=== PATIENT | male | born 2000 | race Caucasian/White ===

== ENCOUNTER 2020-05-19 16:11 | Outpatient (CLI) | payer OTHER, SELFPAY ==
--- NOTE | ~2020-05-19 | XR_ITS ---
EXAMINATION: XR chest 2V DATE: 05/19/2020 16:41 INDICATION: Acute upper respiratory infection. COVID-19 pneumonia. TECHNIQUE: Frontal and lateral views of the chest were obtained. COMPARISON: None. FINDINGS: There are patchy airspace opacities in all right lung zones and in left mid and lower lung zones. No pleural effusion or pneumothorax. The heart size is normal. IMPRESSION: 1. Diffuse lung disease, consistent with pneumonia. Reviewed, dictated and finalized at location A.
== END 2020-05-19 16:12 | disposition home or self-care (01) ==
PROVIDERS: PCP Pediatrics; Visit Provider Nurse Practitioner Family
DX: J06.9 Acute upper respiratory infection, unspecified (principal); R91.8 Other nonspecific abnormal finding of lung field
CPT/HCPCS: 71046

== ENCOUNTER 2021-12-31 09:43 | Emergency (ER) | payer OTHER, SELFPAY ==
--- NOTE | 2021-12-31 09:49 | ED.EAR ---
HPI - Ear Problem General Chief complaint: Upper Respiratory Infection Stated complaint: ear pain Time Seen by Provider: 12/31/21 09:45 Source: patient Mode of arrival: ambulatory Limitations: no limitations History of Present Illness HPI Narrative: Mr Dhaliwal is a 21-year-old male patient presenting to clinic today with complaints of sore throat x1 day. He reports that his symptoms began yesterday afternoon. He noted that his tonsils were swollen and thinks he may have strep. He denies any fever or chills. He denies any strep exposure Related Data Allergies Allergy/AdvReac Type Severity Reaction Status Date / Time No Known Allergies Allergy Unverified 04/10/13 16:37 Review of Systems Review of Systems: Pertinent positives per HPI. Patient denies any fever, chills, rash, headache, visual changes, dizziness, cough, shortness of breath, chest pain, palpitations, nausea, vomiting, diarrhea, constipation, abdominal pain, or any urinary issues. PMF Comments At the time of my signature, I reviewed and agree with the nursing past medical, surgical, social, and family history. There is no relevant family history pertinent to the patient complaint. Exam Narrative: General: Well-developed, obese, in no apparent distress Head: Normocephalic, atraumatic Eyes: Pupils equally round and reactive to light bilaterally, EOM intact, sclera and conjunctive clear, no discharge, lids normal Ears: TMs intact and clear, ear canals clear, no drainage, grossly hearing normal. Nose: Nares patent, no discharge, no inflammation, no sinus tenderness. Mouth: Oral pharynx without lesions or masses, good dentition, MMM. Oropharynx red with tonsillar swelling with exudate Neck: Supple, trachea midline, mild enlargement of anterior cervical nodes, no thyroid masses or goiter palpable. Cardio: Regular rate and rhythm, s1 and s2 normal, no murmur appreciated. Resp: Clear to auscultation bilaterally, no rhonchi, rales, wheezing or rubs Course Course Emergency Course: Portions of this record may have been created with voice recognition software. Level of Care: Express Care Visit Vital Signs Vital signs: Vital Signs Temperature 36.1 C L 12/31/21 09:56 Pulse Rate 100 12/31/21 09:56 Respiratory Rate 16 12/31/21 09:56 Blood Pressure 147/83 H 12/31/21 09:56 Pulse Oximetry 100 11/11/22 09:56 Oxygen Delivery Room Air 12/31/21 09:56 Temperature 36.1 C L 12/31/21 09:56 Pulse Rate 100 12/31/21 09:56 Respiratory Rate 16 12/31/21 09:56 Blood Pressure 147/83 H 12/31/21 09:56 Pulse Oximetry 100 12/31/21 09:56 Oxygen Delivery Room Air 12/31/21 09:56 Vital signs reviewed Medical Decision Making MDM Narrative Medical decision making narrative: at the time of visit patient is resting comfortably on the exam table. Strep screen was obtained and was positive in the clinic today. I was treat the patient for strep pharyngitis. Prescription for amoxicillin was sent to the pharmacy and patient voiced understanding of discharge instructions and agrees to treatment plan. Differential Diagnosis Differential Diagnosis: Pharyngitis strep pharyngitis upper respiratory infection Vital Signs Vital Signs: Vital Signs Temperature 36.1 C L 12/31/21 09:56 Pulse Rate 100 12/31/21 09:56 Respiratory Rate 16 12/31/21 09:56 Blood Pressure 147/83 H 12/31/21 09:56 Pulse Oximetry 100 12/31/21 09:56 Oxygen Delivery Room Air 12/31/21 09:56 Temperature 36.1 C L 12/31/21 09:56 Pulse Rate 100 12/31/21 09:56 Respiratory Rate 16 12/31/21 09:56 Blood Pressure 147/83 H 12/31/21 09:56 Pulse Oximetry 100 12/31/21 09:56 Oxygen Delivery Room Air 12/31/21 09:56 Discharge Plan Discharge Clinical Impression: Strep pharyngitis Patient Disposition: Home, Self-Care Condition: Stable Instructions: Antibiotic Form, Strep Throat (ED) Additional Instructions: Take prescription medic
[2021-12-31 09:56] VITALS: BP 147/83; PULSE 100; RESP 16; TEMP 36.1; O2SAT 100
== END 2021-12-31 10:13 | disposition home or self-care (01) ==
PROVIDERS: Emergency Provider Nurse Practitioner Family
DX: J02.0 Streptococcal pharyngitis (principal)
CPT/HCPCS: 87880; 99213; G0463

== ENCOUNTER 2022-04-04 12:11 | Emergency (ER) | payer OTHER, SELFPAY ==
[2022-04-04 12:27] VITALS: BP 145/76; PULSE 107; RESP 16; TEMP 36.9; O2SAT 99
--- NOTE | 2022-04-04 12:59 | WPDEDEXPGENP ---
HPI - General Ped General Chief complaint: Upper Respiratory Infection Stated complaint: Sore Throat Time Seen by Provider: 04/04/22 12:59 Source: patient, family, RN notes reviewed and old records reviewed Mode of arrival: ambulatory Limitations: no limitations Nursing Documentation: reviewed/agree History of Present Illness HPI narrative: 21-year-old male presents to the [facility] with complaints of a sore throat since yesterday. Has a history of strep. Onset (ago): day(s) (1) Related Data Allergies Allergy/AdvReac Type Severity Reaction Status Date / Time No Known Allergies Allergy Verified 04/04/22 12:39 Pediatric Review of Systems All systems ED: reviewed and negative except as stated Constitutional: Denies fever or chills ENT: Reports as per HPI and sore throat; Denies ear pain Cardiovascular: Denies chest pain Respiratory: Denies cough Gastrointestinal: Denies abdominal pain Musculoskeletal: Denies back pain Integumentary: Denies rash Neurological: Denies headache Psychiatric: Denies change in energy level or fussiness PMFSH Comments At the time of my signature, I reviewed and agree with the nursing past medical, surgical, social, and family history. There is no relevant family history pertinent to the patient complaint. Pediatric Exam General: Limitations: no limitations General appearance: well-appearing, well-hydrated, active and well-nourished Head: Head exam: normocephalic and atraumatic Eye: Eye exam: Present normal appearance and PERRL ENT: ENT exam: normal exam, normal oropharynx, mucous membranes moist, TM's normal bilaterally and normal external ear exam Expanded ENT Exam: External ear exam: Present normal external inspection Throat exam: Present uvula midline, tonsillar erythema, tonsillomegaly and tonsillar exudate Neck: Neck exam: Present normal inspection, full ROM and trachea midline; Absent tenderness, meningismus or lymphadenopathy Chest: Chest inspection: Present normal inspection and symmetric chest wall rise Respiratory: Respiratory exam: Present normal lung sounds bilaterally; Absent respiratory distress, wheezes, stridor or accessory muscle use Cardiovascular: Cardiovascular exam: Present regular rate and normal rhythm Abdominal Exam: Abdominal exam: Present soft; Absent tenderness Extremities Exam: Extremities exam: Present normal inspection, full ROM and normal capillary refill; Absent tenderness Back Exam: Back exam: Present normal inspection and full ROM; Absent tenderness Neurological Exam: Neurological exam: Present alert, oriented X3 and normal gait Skin: Skin exam: Present warm, dry, intact and normal color; Absent rash Course Course Emergency Course: Discharge instructions reviewed with parent/patient, as well as provided in writing per nursing staff. The instructions also include specific and strict return/GO TO THE ER as well as f/u information. All questions have been answered, and the parent/patient deny any further questions with discharge and discharge plan. Some parts of this dictation were generated by voice recognition software and may contain typographical and/or grammatical inaccuracies. Level of Care: Express Care Visit Vital Signs Vital signs: Vital Signs Temperature 98.5 F 04/04/22 12:27 Pulse Rate 107 H 04/04/22 12:27 Respiratory Rate 16 04/04/22 12:27 Blood Pressure 145/76 H 04/04/22 12:27 Pulse Oximetry 99 04/04/22 12:27 Oxygen Delivery Room Air 04/04/22 12:27 Temperature 98.5 F 04/04/22 12:27 Pulse Rate 107 H 04/04/22 12:27 Respiratory Rate 16 04/04/22 12:27 Blood Pressure 145/76 H 04/04/22 12:27 Pulse Oximetry 99 04/04/22 12:27 Oxygen Delivery Room Air 04/04/22 12:27 reviewed Medical Decision Making MDM Narrative Medical decision making narrative: patient is sitting comfortably on exam table. No acute distress noted. Nontoxic in appearance. Vitals are stable Positive stre
== END 2022-04-04 13:20 | disposition home or self-care (01) ==
PROVIDERS: Emergency Provider Nurse Practitioner
DX: J02.0 Streptococcal pharyngitis (principal)
CPT/HCPCS: 87880; 99213; G0463